=== PATIENT | female | born 1945 ===

== ENCOUNTER 2017-03-15 07:38 | Day surgery (SDC) | payer BC, MEDICARE ==
[2017-03-12 10:29] VITALS: BMI 22.4
[2017-03-15] MEDS ORDERED: Propofol 10 mg/ml Inj (20 ML) ONE (08:04)
[2017-03-15] MEDS ORDERED: Sodium Chloride 0.9% 1,000 ML IV SCH (10:00)
[2017-03-15 11:45] VITALS: BP 121/67; RESP 17; TEMP 97.3
[2017-03-15 11:48] VITALS: PULSE 64; O2SAT 97
== END 2017-03-15 11:16 | disposition home or self-care (01) ==
LOC: ENDO 07:38
PROVIDERS: ATTEND Specialist
DX: K62.5 Hemorrhage of anus and rectum (principal); K63.5 Polyp of colon; K57.30 Diverticulosis of large intestine without perforation or abscess without bleeding; K64.8 Other hemorrhoids; R19.7 Diarrhea, unspecified; I10 Essential (primary) hypertension
CPT/HCPCS: 45380; 45385; 87045; 87177; 87209; 87324; 88305; J2704; J7040 ×2

== ENCOUNTER 2018-09-21 20:57 | Observation (INO) | payer BC, MEDICARE ==
--- NOTE | 2018-09-21 22:02 | ED PDOC ---
Arrival/HPI <Eric Macias - Last Filed: 09/21/18 23:43> - General Historian: Patient - History of Present Illness Narrative History of Present Illness (Text): 09/21/18 21:53 72 y/o female, pmh including htn/hld, nkda, c/o on and off htn and headache x 5 days. Pt. stated that she has been having htn for the past few days, highest 200/100, associated with headache, started to have palpitation and chest pain tonight with tachycardia up to 120s in the ER, on and off, stated that she gets nervous. Pt. has no numbness or tingling, no slurred speech, no change in vision, no rash, no diarrhea, no other medical or psychological complaints. <Catalino Lagunas - Last Filed: 09/22/18 00:19> - General Chief Complaint: Chest Pain Past Medical History - Provider Review Nursing Documentation Reviewed: Yes - Cardiac Hx Cardiac Disorders: Yes Hx Hypertension: Yes Hx Pacemaker: No - Neurological Hx Paralysis: No - Hematological/Oncological Hx Blood Transfusions: No Hx Blood Transfusion Reaction: No - Psychiatric Hx Emotional Abuse: No Hx Physical Abuse: No Hx Substance Use: No - Anesthesia Hx Anesthesia Reactions: No Hx Malignant Hyperthermia: No - Suicidal Assessment Feels Threatened In Home Enviroment: No <Catalino Lagunas - Last Filed: 09/22/18 00:19> Family/Social History - Physician Review Nursing Documentation Reviewed: Yes Family/Social History: Unknown Family HX Smoking Status: Never Smoked Hx Alcohol Use: Yes (SOCIAL) Frequency of alcohol use: Socially Hx Substance Use: No <Catalino Lagunas - Last Filed: 09/22/18 00:19> Allergies/Home Meds <Eric Macias - Last Filed: 09/21/18 23:43> <Catalino Lagunas - Last Filed: 09/22/18 00:19> Allergies/Adverse Reactions: Allergies No Known Allergies Allergy (Verified 03/12/17 10:29) Home Medications: Home Meds Medication Instructions Recorded Confirmed Ibuprofen [Advil] 200 mg PO BID PRN 03/12/17 03/15/17 Pravastatin Sodium [Pravachol] 40 mg PO QPM 03/12/17 03/15/17 amLODIPine [Norvasc] 5 mg PO QAM 03/12/17 03/15/17 Review of Systems - Review of Systems Constitutional: absent: Fatigue, Fevers Eyes: absent: Vision Changes, Photophobia ENT: absent: Hearing Changes Respiratory: absent: SOB, Cough Cardiovascular: Chest Pain, Palpitations Gastrointestinal: absent: Abdominal Pain, Nausea, Vomiting Musculoskeletal: absent: Arthralgias, Back Pain Skin: absent: Rash, Pruritis Neurological: Headache. absent: Dizziness Psychiatric: absent: Anxiety, Depression, Suicidal Ideation <LagunasCatalino Wolf - Last Filed: 09/22/18 00:19> Physical Exam Vital Signs Temp Pulse Resp BP Pulse Ox 09/21/18 21:25 98.6 F 100 H 18 159/93 H 96 <Eric Macisa - Last Filed: 09/21/18 23:43> Vital Signs Reviewed: Yes Vital Signs Temp Pulse Resp BP Pulse Ox 09/21/18 21:25 98.6 F 100 H 18 159/93 H 96 Temperature: Afebrile Blood Pressure: Hypertensive Pulse: Tachycardic Respiratory Rate: Normal Appearance: Positive for: Well-Appearing, Non-Toxic, Comfortable Pain Distress: None Mental Status: Positive for: Alert and Oriented X 3 - Systems Exam Head: Present: Atraumatic, Normocephalic, Other (no temporal artery tenderness or jaw claudication). No: Tenderness, Contusion, Swelling, Ecchymosis, Abrasion, Laceration Pupils: Present: PERRL Extroacular Muscles: Present: EOMI Conjunctiva: Present: Normal Ears: Present: NORMAL TM, Normal Canal. No: Erythema Mouth: Present: Moist Mucous Membranes Pharnyx: No: ERYTHEMA, EXUDATE, TONSILS ENLARGED Nose (External): Present: Atraumatic. No: Abrasion, Contusion, Laceration Nose (Internal): Present: Normal Inspection, No Active Bleeding. No: Rhino rrhea, Septal Hematoma, Epistaxis Neck: Present: Normal Range of Motion Respiratory/Chest: Present: Clear to Auscultation, Good Air Exchange. No: Res piratory Distress, Accessory Muscle Use Cardiovascular: Present: Regular Rate and Rhythm, Normal S1, S2. No: Murmurs Abdomen: No: Tenderness, Distention, Peritoneal Signs Back: Present: Normal Inspection Upper Extremity: Present: Normal Inspection. No: Cyanosis, Edema Lower Extremity: Present: Normal Inspection. No: Edema Neurological: Present: GCS=15, CN II-XII Intact, Speech Normal Skin: Present: Warm, Dry, Normal Color. No: Rashes Psychiatric: Present: Alert, Oriented x 3, Normal Insight, Normal Concentration <Catalino Lagunas - Last Filed: 09/22/18 00:19> Medical Decision Making - Lab Interpretations Lab Results: PT 10.2 SECONDS (9.4-12.5) 09/21/18 21:35 INR 0.92 09/21/18 21:35 APTT 40.0 Seconds (26.9-38.3) H 09/21/18 21:35 D-Dimer, Quantitative 92 ng/mlDDU (0-243) 09/21/18 22:30 Troponin I < 0.01 ng/mL 09/21/18 21:35 Total Bilirubin 1.3 mg/dL (0.2-1.3) 09/21/18 21:35 AST 41 U/L (14-36) H 09/21/18 21:35 ALT 23 U/L (7-56) 09/21/18 21:35 Alkaline Phosphatase 74 U/L (38-126) 09/21/18 21:35 Total Protein 9.6 g/dL (5.8-8.3) H 09/21/18 21:35 Albumin 5.1 g/dL (3.0-4.8) H 09/21/18 21:35 Globulin 4.5 gm/dL 09/21/18 21:35 Albumin/Globulin Ratio 1.1 (1.1-1.8) 09/21/18 21:35 - RAD Interpretation Radiology Orders: 09/21/18 21:55 CHEST PORTABLE [RAD] Stat 09/21/18 22:11 HEAD W/O CONTRAST [CT] Stat <Eric Macias - Last Filed: 09/21/18 23:43> ED Course and Treatment: 09/21/18 22:11 Cardiac arrhythmia vs. ACS vs. Thryoid disorder vs. PE -labs -CT head -Chest xray -EKG -Observe and reassess 09/22/18 00:17 -EKG: NSR @ 76 BPM, no ST elevation or depression, no T wave inversion. -CT head There is mild prominence of ventricles and sulci compatible with mild atrophy. No CT evidence for acute intracranial abnormality. -Chest xray -Labs are nonsignificant -Trop is negative 1st set -Dimer is negative -Thyroid panel within normal limit. -HEART Score is moderate, will need admission. -I discussed about the labs/radiology result with the patient, recommend her to admit due to her complain and unstable HR 70-120HR in the ER along with her chest pain/palpitation, she agreed to be admitted. Her pmd doesn't come to this ER, will page medicine director decision support Dr. Cuevsa. -I discussed with Dr. Cuevas, medicine director decision support, discussed about the case and she request full admission, add another set of troponin for her as she would follow up the labs and continue medical care. - RAD Interpretation Radiology Orders: CT Head: EXAM: CT Head without Intravenous Contrast. CLINICAL HISTORY: HEADACHE, R/O BLEED TECHNIQUE: Axial computed tomography images of the head/brain without intravenous contrast. 1046.70 mGy-cm COMPARISON: None provided. FINDINGS: BRAIN No acute intraparenchymal hemorrhage. No mass lesion. No CT evidence for acute territorial infarct. No midline shift or extra-axial collections. VENTRICLES: There is mild prominence of ventricles and sulci compatible with mild atrophy. ORBITS: The orbits are unremarkable. SINUSES AND MASTOIDS: The paranasal sinuses and mastoid air cells are clear. BONES: No fracture. SOFT TISSUES: Unremarkable. MISCELLANEOUS: No CT evidence for acute intracranial abnormality. IMPRESSION: 1. There is mild prominence of ventricles and sulci compatible with mild atrophy. 2. No CT evidence for acute intracranial abnormality. Electronically signed on Sep 21, 2018 11:26:46 PM EDT by: Erasmo Montenegro M.D., MIS Certified By [facility] & [facility] Fellowship Trained MRI and CT Specialist Chest xray: Aviation Project Manager: Radiologist <Lagunas,Catalino Q - Last Filed: 09/22/18 00:19> - PA / ARMATURE BALANCER / Resident Statement KIM has reviewed & agrees with the documentation as recorded. KIM has examined the patient and agrees with the treatment plan. <Eric Macias - Last Filed: 09/21/18 23:43> - PA / ARMATURE BALANCER / Resident Statement KIM has reviewed & agrees with the documentation as recorded. KIM has examined the patient and agrees with the treatment plan. <Catalino Lagunas - Last Filed: 09/22/18 00:19> Disposition/Present on Arrival <Eric Macias - Last Filed: 09/21/18 23:43> - Present on Arrival Any Indicators Present on Arrival: No History of DVT/PE: No History of Uncontrolled Diabetes: No Urinary Catheter: No History of Decub. Ulcer: No History Surgical Site Infection Following: None - Disposition Have Diagnosis and Disposition been Completed?: Yes Disposition Time: 00:18 Patient Plan: Admission <Catalino Lagunas - Last Filed: 09/22/18 00:19> - Disposition Diagnosis: Chest pain, Palpitation, HTN (hypertension) Disposition: HOSPITALIZED Condition: STABLE Discharge Instructions (ExitCare): Chest Pain (ED) Referrals: Yuli Cross MD [Primary Care Provider] - Follow up with primary Forms: Barcoding (Bengali)
[2018-09-21 22:08] LABS: BASO # 0.02 K/mm3 (0.0-2.0); BASO % 0.4 % (0.0-3.0); EOS # 0.1 (0.0-0.7); EOS % 1.3 % (1.5-5.0); HEMOGLOBIN 14.6 g/dL (12.0-16.0); LYMPH # 1.9 (1.2-3.4); LYMPH % 34.8 % (22.0-35.0); MEAN CORPUSCULAR HEMOGLOBIN 21.6 pg (25.0-35.0); MEAN CORPUSCULAR HGB CONC 32.2 g/dl (31.0-37.0); MONO # 0.3 (0.1-0.6); MONO % 6.2 % (1.0-6.0); RBC 6.76 10^6/uL (3.5-6.1); RED CELL DISTRIBUTION WIDTH 16.1 % (11.5-14.5); WHITE BLOOD COUNT 5.3 10^3/uL (4.5-11.0)
[2018-09-21 22:18] LABS: ALB/GLOB RATIO 1.1 (1.1-1.8); ALBUMIN 5.1 g/dL (3.0-4.8); ALT/SGPT 23 U/L (7-56); AST/SGOT 41 U/L (14-36); BLOOD UREA NITROGEN 19 mg/dL (7-21); GFR NON-AFRICAN AMERICAN > 60
[2018-09-21 22:25] LABS: INR 0.92; PROTHROMBIN TIME 10.2 SECONDS (9.4-12.5)
[2018-09-21 22:29] LABS: TROPONIN I < 0.01 ng/mL
[2018-09-21 23:17] LABS: FREE T4 1.13 ng/dL (0.78-2.19)
[2018-09-22 03:20] VITALS: BMI 21.5
--- NOTE | 2018-09-22 08:40 | CT ---
Date of service: 09/21/2018 PROCEDURE: CT HEAD WITHOUT CONTRAST. HISTORY: headache and htn, r/o bleed COMPARISON: None available. TECHNIQUE: Axial computed tomography images were obtained through the head/brain without intravenous contrast. Radiation dose: Total exam DLP = 1046.7 mGy-cm. This CT exam was performed using one or more of the following dose reduction techniques: Automated exposure control, adjustment of the mA and/or kV according to patient size, and/or use of iterative reconstruction technique. FINDINGS: HEMORRHAGE: No intracranial hemorrhage. BRAIN: Knox-white matter differentiation is preserved. There is no mass, mass effect or abnormal extra-axial fluid collection. There is no territorial infarction. The midline sagittal structures are normal. VENTRICLES: The ventricles are normal in size, shape and configuration. CALVARIUM: There is no calvarial fracture or extracranial soft tissue swelling. PARANASAL SINUSES: Predominantly clear. MASTOID AIR CELLS: Predominantly clear. OTHER FINDINGS: None. IMPRESSION: No acute intracranial abnormality. A preliminary report was provided by [employer].
--- NOTE | 2018-09-22 08:58 | RAD ---
Date of service: 09/21/2018 HISTORY: medical clearance COMPARISON: No prior. FINDINGS: LUNGS: The lungs are well inflated and clear. PLEURA: No pleural effusions or pneumothorax. CARDIOVASCULAR: The heart is normal in size. There are aortic atherosclerotic calcifications present. OSSEOUS STRUCTURES: Within normal limits for the patient's age. VISUALIZED UPPER ABDOMEN: Normal. OTHER FINDINGS: None. IMPRESSION: No active pulmonary disease.
--- NOTE | 2018-09-22 18:26 | HP ---
DATE OF EXAM: 09/22/2018 HISTORY OF PRESENT ILLNESS: This 72-year-old female was examined at her bedside on the cardiac unit at the [facility] on the afternoon of 09/22/2018. This case was reviewed in detail with nurseShahana, registered nurse. The patient presented to the [facility] ER late last evening. There, she complained of accelerated hypertension and a headache for the past 5 days. The patient was noted to have blood pressures as high as 200/100 associated with headaches at her home over the past several days associated with palpitations and chest discomfort, and in the emergency room she was noted to be in sinus tachycardia. The patient was admitted for further evaluation of the above. On further questioning of this patient, she has been under extreme strain at her home due to problems with a new tenant in her apartment. There have been numerous altercations and she attributes this to her accelerated hypertension and comorbid symptoms. I did review her chest x-ray from the emergency room that showed no active pulmonary disease. There was no evidence of pneumonia, congestive heart failure, pleural effusion or pneumothorax and her heart was reportedly normal in size. A head CT that was performed last evening in the [facility] ER was also reviewed. It showed no acute intracranial abnormalities. There was no intracranial hemorrhage, no mass effect, and no evidence of old stroke. On further questioning of the patient, she has had a longstanding history of hypertension, hyperlipidemia and follows with Dr. Yuli Cross. PAST MEDICAL HISTORY: Significant for chronic hypertension and hyperlipidemia. FAMILY HISTORY: Noncontributory. SOCIAL HISTORY: She is a nondrinker, nonsmoker, non IV drug misuser. 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 OUTPATIENT MEDICATIONS: Norvasc 5 mg p.o. daily, Pravachol 40 mg p.o. daily and ibuprofen 200 mg p.o. b.i.d. p.r.n. arthritic pain. ALLERGIES: NO KNOWN ALLERGIES TO MEDICATION. REVIEW OF SYSTEMS: CONSTITUTIONAL: No fever, no chills. HEAD: Recent headache associated with hypertension. EYES: No change in visual acuity. EARS: No hearing loss. THROAT: No swallowing difficulty. NECK: No stiffness. CARDIAC: She denies any knowledge of angina, valvular heart disease or myocardial infarction. PULMONARY: No cough. No hemoptysis. GI: No hematemesis. No melena. : No dysuria. SKIN: No rash. VASCULAR: No claudication. PSYCHOLOGICAL: She is anxious, but denies any knowledge of depression. NEUROLOGICAL: No knowledge of stroke. 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 VITAL SIGNS: Temperature 97.6, respirations 20, pulse 50, and blood pressure 115/72 with a pulse ox of 96% room air. HEAD: Normocephalic, atraumatic. EYES: No icterus. EARS: Clear. THROAT: Noninjected. NECK: Supple. HEART: S1, S2. No pathological rubs, murmurs or gallops. LUNGS: Clear. ABDOMEN: Soft. EXTREMITIES: No edema. SKIN: Without rash. NEUROLOGICAL: Intact. PSYCHOLOGICAL: Alert and oriented x3. LABORATORY DATA: White count 5300, hemoglobin 14.6, hematocrit 45.3, platelets 269,000. PT/INR 0.92. D-dimer normal at 92. Sodium 140, K 3.8, chloride 107, bicarb 22, BUN 19, creatinine 0.7, random blood sugar 128, calcium 10.0, magnesium 2.1. Bilirubin 1.3, AST 41, ALT 23, alk phos 74 and troponin less than 0.01 x2 with a TSH normal at 1.76 and a free T4 at 1.13. IMPRESSION/PLAN: This is a 72-year-old female with recent accelerated hypertension due to emotional strain with comorbidities of history of hyperlipidemia and degenerative arthritis. As discussed with the patient and nursing, I will order a stat hemoglobin A1c and a lipid panel for the a.m. She will continue on Lipitor 20 mg p.o. at dinnertime, Motrin 200 mg p.o. b.i.d. p.r.n. arthritic pain, Norvasc 5 mg p.o. daily and she is ordered to have an echocardiogram to evaluate her heart muscle and valves. She remains on a heart-healthy diet. Greater than 75 minutes was spent in the care management, review of labs, orders, x-rays and discussion of this patient with herself and nursing. All questions were answered at bedside. Sarah Mason, MD [facility] # [id number] MTDD
--- NOTE | 2018-09-22 19:51 | CARD ---
APPROVED REPORT Date of service: 09/21/2018 EKG Measurement Heart [id number] 150P30 [id number] <Conclusion> Normal sinus rhythm Cannot rule out Inferior infarct, age undetermined Poor R wave progression V1-3. Cannot exclude old ASMI CCR Abnormal ECG
[2018-09-23 00:17] VITALS: O2SAT 93
[2018-09-23 07:17] LABS: HDL CHOLESTEROL 54 mg/dL (29-60)
[2018-09-23 07:31] LABS: LDL CHOLESTEROL 110 mg/dL (0-129)
--- NOTE | 2018-09-23 12:12 | PN ---
DATE: 09/23/2018 SUBJECTIVE: This 72-year-old female was examined on the cardiac sandy of the [facility] on the morning of 09/23/2018. This case was reviewed in detail with her nurse, Leatha Medrano, registered nurse. The patient is currently in a normal sinus rhythm. She denies any chest pain or palpitation. She was admitted with accelerated hypertension and a headache secondary to the above. At present, she is tolerating Norvasc, Lipitor and p.r.n. Motrin and is on schedule for a 2-D echocardiogram. PHYSICAL EXAMINATION: VITAL SIGNS: Her temperature is 97.8, respirations 20, pulse 59 and blood pressure 109/67 with a pulse ox of 93% room air. HEENT: Head: Normocephalic, atraumatic. Eyes: No icterus. Ears: Clear. Throat: Noninjected. NECK: Supple. HEART: S1, S2. LUNGS: Clear. ABDOMEN: Soft. EXTREMITIES: No edema. SKIN: Without rash. NEUROLOGICAL: Intact. PSYCHOLOGICAL: Anxious. VASCULAR: Legs warm to touch. LABORATORY DATA: White count 5300, hemoglobin 14.6, hematocrit 45.3, platelets 269,000. PT/INR 0.92. Chemistry, sodium 140, K 3.8, chloride 107, bicarb 22, BUN 19, creatinine 0.7, random blood sugar 128. Hemoglobin A1c 6.5. Troponin less than 0.01 x2. Cholesterol 194, triglycerides 64, LDL 110 and HDL 54 with a normal free T4 of 1.13 and a TSH normal at 1.76. Head CT was reviewed. No intracranial abnormalities. No hemorrhage. No stroke. Chest x-ray was reviewed, no CHF, normal cardiac silhouette, no pneumonia, no pleural effusion. IMPRESSION: A 72-year-old female admitted with accelerated hypertension and headache secondary to accelerated hypertension with history of hyperlipidemia and hypertension, chronic anxiety and stress. PLAN: The plan at present is to continue Lipitor 20 mg p.o. at dinner, Motrin 200 mg p.o. b.i.d. p.r.n. arthritic pain, Norvasc 5 mg p.o. daily, Tylenol 650 p.o. every 6 hours p.r.n. pain or headache and Zofran 4 mg IV every 6 hours p.r.n. nausea, vomiting. The patient is on schedule for an echocardiogram regarding her chest discomfort and palpitations on admission. She will continue on a heart-healthy diet and based on her clinical results either be discharged or additional workup will be entertained. All of the above was reviewed with the patient and her nurse,Leatha Medrano. All questions were answered. Sarah Cuevas MD
[2018-09-23 12:18] VITALS: BP 119/80; PULSE 61; RESP 18; TEMP 97.6
--- NOTE | 2018-09-25 01:29 | DS ---
DATE OF EVALUATION: 09/23/2018 FINAL DIAGNOSES: Accelerated hypertension, improved; headache resolved, hyperlipidemia, and degenerative arthritis. DISPOSITION: Home. The patient to follow up with her PMD, Dr. Yuli Cross, medical doctor in 48 hours for completion of workup including outpatient echocardiography and possible stress testing. The patient was advised to continue Norvasc 5 mg p.o. daily, Pravachol 40 mg p.o. daily, and Advil 200 mg p.o. b.i.d. p.r.n. arthritic pain. SUMMARY: This 72-year-old female who was admitted to [facility] ([facility] with accelerated hypertension and headache that resolved with unremarkable chest x-ray, EKG and head CT, was being scheduled for an echocardiography for completeness sake after improvement in blood pressure was noted. The patient became anxious, could not wait for the echocardiography testing to be completed and was adamant about discharge. PHYSICAL EXAMINATION: VITAL SIGNS: At the time of this dictation, the patient had vital signs showing temperature 97.6, respirations 18, pulse 61 and blood pressure 119/880. LABORATORY DATA: Showed white count 5300, hemoglobin 14.6, hematocrit 45.3, and platelets 269,000. Sodium of 140, K 3.8, chloride 107, bicarb 22, BUN 19, creatinine 0.7, and random blood sugar of 128. Cholesterol was 194, triglycerides 64, LDL 110, and HDL 54. TSH normal 1.76. T4 normal 1.13. Hemoglobin A1c 6.5. Troponin less than 0.01 x2. Her EKG showed a normal sinus rhythm with nonspecific ST-T wave changes. Chest x-ray showed clear lungs and head CT showed no intracranial abnormalities, no hemorrhage, and no infarct. DISCHARGE INSTRUCTIONS: The patient was advised to be compliant with medication to follow up with PMD within 48 hours and that she would need additional diagnostic testing to further evaluate her presentation with accelerated hypertension. The patient could not be convinced to stay for further testing and hopefully will be compliant with the above recommendation. She was discharged on the afternoon of 09/23/2018. All questions were answered. Sarah Cuevas MD [facility] # [id number]
== END 2018-09-23 17:53 | disposition home or self-care (01) ==
LOC: ED 20:57 → INTOOBSV 09-22 00:14 → ERH 09-22 00:14 → 2RNO 09-22 01:30
PROVIDERS: ADMIT Internal Medicine; ATTEND Internal Medicine
DX: I10 Essential (primary) hypertension (principal); E78.5 Hyperlipidemia, unspecified; R51 Headache; M19.90 Unspecified osteoarthritis, unspecified site
CPT/HCPCS: 36415; 70450; 71045; 80053; 80061; 83036; 83735; 84439; 84443; 84484; 85025; 85378; 85610; 85730; 93005; 99285; G0378